=== PATIENT | female | born 1940 | race Caucasian/White ===

== ENCOUNTER 2017-09-07 14:22 | Emergency (ER) | payer MEDICARE, SELFPAY ==
[2017-09-07 14:30] VITALS: BMI 31.4
[2017-09-07 15:08] LABS: Absolute Lymphocyte Count 1.09 X10^3/ul (0.83-4.51); Absolute Neutrophil Count 4.1 X10^3/uL (2.0-7.7); Basophil# 0.02 X10^3/uL; Basophil% 0.3 % (0-1); Eosinophil# 0.03 X10^3/uL; Eosinophils% 0.5 % (0-5); Hematocrit 32.3 % (37-47); Lymphocyte # 1.09 X10^3/ul (4.0); Lymphocyte % 17.8 % (19-41); Mean Corp Hgb Conc 34.1 g/gl (32-36); Mean Corpuscular Hgb 30.7 pg (27.0-32.0); Mean Corpuscular Volume 90.2 fL (81-99); Mean Platelet Vol. 9.1 fl (6.2-12.0); Monocyte# 0.86 X10^3/uL; Monocyte% 14.1 % (0-10); Neutrophil # 4.11 X10^3/uL (2.7-7.7); Neutrophil % 67.1 % (47-70); POSITIVE COUNT NO; POSITIVE DIFFERENTIAL NO; POSITIVE MORPHOLOGY NO; Platelet Count 227 K/mm3 (150-450); Red Blood Count 3.58 M/mm3 (4.2-5.4); White Blood Count 6.1 K/mm3 (4.4-11.0)
[2017-09-07 15:25] LABS: Anion Gap 10 (5-15); BUN 33 mg/dL (7-18); BUN/Creat Ratio 20.1 RATIO (10-20); Calcium,Total 10.3 mg/dL (8.5-10.1); Chloride 98 mmol/L (98-107); Creatinine, Serum 1.64 mg/dL (0.55-1.02); EST Glomerular Filtration Rate 32 mL/min (>60); Est Glom Filt Rate - Afr Amer 39 mL/min (>60); Estimated Creatinine Clearance 24.52 ml/min; Glucose 117 mg/dL (74-106); Potassium 4.1 mmol/L (3.5-5.1); Sodium Level 131 mmol/L (136-145)
--- NOTE | 2017-09-07 15:26 | ED.VISSUMM ---
- ER Visit Summary Date of Service: 09/07/17 Chief Complaint: My defibrillator fired today and 2 days ago History of Present Illness: The patient is a 76 F who has history of dysrhythmia had and AC ID placed at the time of her aortic and mitral valve replacement. Her EP monotype machinist has since retired. She has not follow-up with anyone at [facility]. She states yesterday while getting out of the shower her defibrillator fired and prior to arrival while talking on the phone her defibrillator fired. Today she stated that she felt funny before the defibrillator fired. She has no other symptoms. She denied chest pain, orthopnea and PND. She denied shortness of breath, dyspnea on exertion or cough. She denied jaw pain, neck pain bilateral shoulder or upper extremity pain. She had no discomfort in her back. She denies any leg pain, swelling or discoloration. She denies hematemesis, melena hematochezia. Please read written note for complete detail Physical Examination: Patient's vitals were noted. Monitor reveals a sinus rhythm rate of 85 with a wide-complex adjustable right bundle branch block. HEENT exam is unremarkable. Heart is regular without murmur, gallop or rub. S1 and S2 are normal. Lungs are clear to auscultation with good movement of air bilaterally. The aortic valve is prominent. There is no split S2. There is no murmur, gallop or rub noted. Abdomen is soft nontender. Bowel sounds are present normal. Lower extremity exam is remarkable for 1+ pitting edema. DP PT pulses are palpable. There is no asymmetry, discoloration, leg vein distention, palpable cords or tenderness along the distribution of deep venous system. Neuro exam is nonfocal. Test Results: CBC is remarkable for mild anemia with an H&H 11.0 and 32.5. Basic metabolic panels marked for sodium 131 creatinine 1.64 with a GFR of 32. There are no recent labs for comparison. The AC ID was interrogated and there were several episodes of wide-complex tachycardia rate of 150+ noted. The dysrhythmia was not successfully treated with overdrive pacing. The discharge of defibrillator was appropriate. Emergency Department Course and Treatment: Will evaluate CBC BMP and have ACID interrogated. Treatment Plan: Follow-up with EP monotype machinist at [facility]. Disposition: Discharge to home with follow-up with EP monotype machinist Impression: Wide complex tachycardia appropriately treated with firing of ACID This note was generated with [employer] dictation software. It may contain incorrect words, spelling, and punctuation that were not noted in review of the chart prior to signing ED Disposition - Plan for ED Patient: Disposition: Home or Assisted Living Chief Complaint: Chest Other Instructions: Implantable Cardioverter Defibrillator (ICD), ED Tachycardia Pat PSVT Referrals: Peng Granados MD [Primary Care Provider] - Additional Instructions: You need to contact her monotype machinist at [facility] for follow-up within the next several days.
--- NOTE | 2017-09-07 15:30 | ED.DCSUM_ITS ---
- ER Visit Summary Date of Service: 09/07/17 Chief Complaint: My defibrillator fired today and 2 days ago History of Present Illness: The patient is a 76 F who has history of dysrhythmia had and AC ID placed at the time of her aortic and mitral valve replacement. 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 She has not follow-up with anyone at [facility]. She states yesterday while getting out of the shower her defibrillator fired and prior to arrival while talking on the phone her defibrillator fired. Today she stated that she felt funny before the defibrillator fired. She has no other symptoms. She denied chest pain, orthopnea and PND. She denied shortness of breath, dyspnea on exertion or cough. She denied jaw pain, neck pain bilateral shoulder or upper extremity pain. She had no discomfort in her back. She denies any leg pain, swelling or discoloration. She denies hematemesis, melena hematochezia. Please read written note for complete detail Physical Examination: Patient's vitals were noted. Monitor reveals a sinus rhythm rate of 85 with a wide-complex adjustable right bundle branch block. HEENT exam is unremarkable. Heart is regular without murmur, gallop or rub. S1 and S2 are normal. Lungs are clear to auscultation with good movement of air bilaterally. The aortic valve is prominent. There is no split S2. There is no murmur, gallop or rub noted. Abdomen is soft nontender. Bowel sounds are present normal. Lower extremity exam is remarkable for 1+ pitting edema. DP PT pulses are palpable. There is no asymmetry, discoloration, leg vein distention, palpable cords or tenderness along the distribution of deep venous system. Neuro exam is nonfocal. Test Results: CBC is remarkable for mild anemia with an H&H 11.0 and 32.5. Basic metabolic panels marked for sodium 131 creatinine 1.64 with a GFR of 32. There are no recent labs for comparison. The AC ID was interrogated and there were several episodes of wide-complex tachycardia rate of 150+ noted. The dysrhythmia was not successfully treated with overdrive pacing. The discharge of defibrillator was appropriate. Emergency Department Course and Treatment: Will evaluate CBC BMP and have ACID interrogated. Treatment Plan: Follow-up with EP ammunition assembly i laborer at [facility]. Disposition: Discharge to home with follow-up with EP ammunition assembly i laborer Impression: Wide complex tachycardia appropriately treated with firing of ACID This note was generated with [employer] dictation software. It may contain incorrect words, spelling, and punctuation that were not noted in review of the chart prior to signing ED Disposition - Plan for ED Patient: Disposition: Home or Assisted Living Chief Complaint: Chest Other Instructions: Implantable Cardioverter Defibrillator (ICD), ED Tachycardia Pat PSVT Referrals: Peng Granados MD [Primary Care Provider] - Additional Instructions: You need to contact her ammunition assembly i laborer at [facility] for follow-up within the next several days.
[2017-09-07 15:48] VITALS: BP 170/71; PULSE 69; RESP 9; O2SAT 98
--- NOTE | 2017-09-07 16:59 | PCM.PACRNU ---
Pacer Nurse Hospital Visit Notes: Dual Chamber ICD Evaluation: Interrogation completed at bedside in ED per MD order for ICD shocks. Interrogation shows 29 NSVT episodes, 7 VT episodes, 2 shocks and 11 SVT episodes since 09/01/17. All episodes occurring on 09/05, and . Stored e-grams for NSVT and VT episodes show 1:1 conduction with rates 164 to 172 bpm. E-gram for episode on 09/07/17 @ 12:38 pm shows atrial and ventricular rate @ 164 bpm with unsuccessful ATP x 3 then successful 17.5J shock converting to NSR @ 75 bpm with premature beats. E-gram on 09/06/17 @ shows Atrial and Vent. rate @ 162 bpm with unsuccessful ATPx3 then successful 17.5J shock converting to NSR. Some of the e-grams for SVT episode look like atrial tachycardia. Pt is on Amiodarone once daily. Presenting rhythm shows NSR @ 72 bpm. Estimated battery life 5.4 to 5.7 yrs. Lead impedances, sensing and pace/sense thresholds stable. No parameter changes made. Did not clear counters since patient is followed at [facility] @ [place]. Pt also has device followed remotely there. Dr. Benavides in ED notified of above. Johan Bonilla RN - Pacer Check Procedure Procedures: 72751 ICD Eval Dual
== END 2017-09-07 15:49 | disposition home or self-care (01) ==
LOC: ED 15:38
PROVIDERS: Emergency Provider Emergency Medicine; Family Provider Family Medicine; PCP Family Medicine
DX: R00.0 Tachycardia, unspecified (principal); I45.10 Unspecified right bundle-branch block; Z95.2 Presence of prosthetic heart valve; I10 Essential (primary) hypertension; E78.00 Pure hypercholesterolemia, unspecified; Z95.810 Presence of automatic (implantable) cardiac defibrillator
CPT/HCPCS: 80048; 85025; 99285

== ENCOUNTER → 2018-05-08 08:38 | Outpatient (CLI) | payer MEDICARE, SELFPAY ==
[2018-05-08 10:03] LABS: AST(SGOT) 27 U/L (15-37); Alanine Aminotransfer ALT/SGPT 45 U/L (13-56); Albumin, Serum 4.4 g/dL (3.2-5.0); Alkaline Phosphatase 82 U/L (45-117); Anion Gap 12 (5-15); BUN 37 mg/dL (7-18); BUN/Creat Ratio 20.3 RATIO (10-20); Calcium,Total 10.1 mg/dL (8.5-10.1); Chloride 101 mmol/L (98-107); Cholesterol 192 mg/dL (200); Creatinine, Serum 1.82 mg/dL (0.55-1.02); EST Glomerular Filtration Rate 29 mL/min (>60); Est Glom Filt Rate - Afr Amer 35 mL/min (>60); Globulin 4.3 g/dL (2.2-4.2); Glucose 92 mg/dL (74-106); High Density Lipoprotein 77 mg/dL; Potassium 4.4 mmol/L (3.5-5.1); Protein, Total 8.7 g/dL (6.4-8.2); Sodium Level 138 mmol/L (136-145); Triglycerides 101 mg/dL; Very Low Density Lipoprotein 20 mg/dL (5-40)
== END ==
PROVIDERS: Family Provider Family Medicine; PCP Family Medicine
DX: E78.5 Hyperlipidemia, unspecified (principal); I48.1 Persistent atrial fibrillation; I10 Essential (primary) hypertension; I35.1 Nonrheumatic aortic (valve) insufficiency; I34.0 Nonrheumatic mitral (valve) insufficiency; I47.2 Ventricular tachycardia; Z95.810 Presence of automatic (implantable) cardiac defibrillator
CPT/HCPCS: 36415; 80053; 80061

== ENCOUNTER → 2018-12-12 09:27 | Outpatient (CLI) | payer MEDICARE, SELFPAY ==
[2018-12-12 11:09] LABS: Thyroid Stim Hormone (TSH) 3.48 uIU/mL (0.358-3.74)
== END ==
PROVIDERS: Family Provider Family Medicine; PCP Family Medicine
DX: I48.1 Persistent atrial fibrillation (principal)
CPT/HCPCS: 36415; 80299; 84443

== ENCOUNTER → 2019-02-08 15:30 | Outpatient (CLI) | payer MEDICARE, SELFPAY ==
[2019-02-08 16:01] LABS: Prothrombin Time (Protime)PT. 54.9 SECONDS (11.7-14.9)
[2019-02-08 16:10] LABS: International Normalized Ratio 6.1
== END ==
PROVIDERS: Family Provider Family Medicine; PCP Family Medicine; Referring Provider Family Medicine; Visit Provider Family Medicine
DX: I48.20 Chronic atrial fibrillation, unspecified (principal)
CPT/HCPCS: 85610

== ENCOUNTER → 2019-02-09 10:07 | Outpatient (CLI) | payer MEDICARE, SELFPAY ==
[2019-02-09 10:29] LABS: Prothrombin Time (Protime)PT. 50.1 SECONDS (11.7-14.9)
[2019-02-09 10:39] LABS: International Normalized Ratio 5.4
== END ==
PROVIDERS: Family Provider Family Medicine; PCP Family Medicine; Referring Provider Family Medicine; Visit Provider Family Medicine
DX: I48.20 Chronic atrial fibrillation, unspecified (principal)
CPT/HCPCS: 85610

== ENCOUNTER → 2019-09-06 10:09 | Outpatient (CLI) | payer MEDICARE, SELFPAY ==
[2019-09-06 12:40] LABS: Urine Sodium 21 mmol/L (Not Establ.)
[2019-09-06 12:49] LABS: Albumin, Serum 3.9 g/dL (3.2-5.0); BUN 38 mg/dL (7-18); BUN/Creat Ratio 22.1 RATIO (10-20); Calcium,Total 9.6 mg/dL (8.5-10.1); Chloride 98 mmol/L (98-107); Creatinine, Serum 1.72 mg/dL (0.55-1.02); EST Glomerular Filtration Rate 31 mL/min (>60); Est Glom Filt Rate - Afr Amer 37 mL/min (>60); Glucose 102 mg/dL (74-106); Phosphorus 3.3 mg/dL (2.5-4.9); Potassium 4.4 mmol/L (3.5-5.1); Sodium Level 131 mmol/L (136-145)
== END ==
PROVIDERS: PCP Family Medicine; Visit Provider Internal Medicine Nephrology
DX: N18.4 Chronic kidney disease, stage 4 (severe) (principal)
CPT/HCPCS: 36415; 80069; 84300

== ENCOUNTER → 2019-09-25 09:29 | Outpatient (CLI) | payer MEDICARE, SELFPAY ==
[2019-09-25 10:39] LABS: Anion Gap 9 (5-15); BUN 24 mg/dL (7-18); Calcium,Total 9.7 mg/dL (8.5-10.1); Chloride 101 mmol/L (98-107); EST Glomerular Filtration Rate 36 mL/min (>60); Est Glom Filt Rate - Afr Amer 43 mL/min (>60); Glucose 109 mg/dL (74-106); Potassium 4.8 mmol/L (3.5-5.1); Sodium Level 134 mmol/L (136-145)
== END ==
PROVIDERS: PCP Family Medicine; Referring Provider Internal Medicine Nephrology; Visit Provider Internal Medicine Nephrology
DX: E87.1 Hypo-osmolality and hyponatremia (principal)
CPT/HCPCS: 36415; 80048

== ENCOUNTER → 2019-11-05 10:51 | Outpatient (CLI) | payer MEDICARE, SELFPAY ==
[2019-11-05 11:38] LABS: BUN 33 mg/dL (7-18); BUN/Creat Ratio 16.8 RATIO (10-20); Calcium,Total 9.4 mg/dL (8.5-10.1); Chloride 106 mmol/L (98-107); Creatinine, Serum 1.97 mg/dL (0.55-1.02); EST Glomerular Filtration Rate 26 mL/min (>60); Est Glom Filt Rate - Afr Amer 32 mL/min (>60); Glucose 113 mg/dL (74-106); Phosphorus 3.6 mg/dL (2.5-4.9); Sodium Level 135 mmol/L (136-145)
== END ==
PROVIDERS: PCP Family Medicine; Referring Provider Internal Medicine Nephrology; Visit Provider Internal Medicine Nephrology
DX: N18.4 Chronic kidney disease, stage 4 (severe) (principal)
CPT/HCPCS: 36415; 80069

== ENCOUNTER → 2019-11-15 11:18 | Outpatient (CLI) | payer MEDICARE, SELFPAY ==
[2019-11-15 12:55] LABS: Albumin, Serum 4.1 g/dL (3.2-5.0); BUN 30 mg/dL (7-18); BUN/Creat Ratio 17.2 RATIO (10-20); Calcium,Total 9.5 mg/dL (8.5-10.1); Chloride 103 mmol/L (98-107); Creatinine, Serum 1.74 mg/dL (0.55-1.02); EST Glomerular Filtration Rate 30 mL/min (>60); Est Glom Filt Rate - Afr Amer 36 mL/min (>60); Glucose 159 mg/dL (74-106); Phosphorus 2.6 mg/dL (2.5-4.9); Potassium 4.9 mmol/L (3.5-5.1); Sodium Level 132 mmol/L (136-145)
== END ==
PROVIDERS: PCP Family Medicine; Visit Provider Internal Medicine Nephrology
DX: N18.4 Chronic kidney disease, stage 4 (severe) (principal)
CPT/HCPCS: 36415; 80069

== ENCOUNTER 2019-11-19 04:40 | Inpatient (IN) | payer MEDICARE, SELFPAY ==
[2019-11-19] VITALS (12 sets, daily range): BP systolic 127–165; BP diastolic 65–80; PULSE 79–105; RESP 16–23; TEMP 36.8–37; O2SAT 92–94; BMI 29.5; BMI 28.8
--- NOTE | 2019-11-19 04:59 | EKG12_ITS ---
Test Reason : SOB Blood Pressure : / mmHG Vent. Rate : 081 BPM Atrial Rate : 081 BPM P-R Int : 136 ms QRS Dur : 166 ms QT Int : 460 ms P-R-T Axes : 000 139 -66 degrees QTc Int : 534 ms Atrial-sensed ventricular-paced rhythm Abnormal ECG Confirmed by GLENN ARREOLA, DAVE ([id number]), slot editor AMBER VILCHIS ([id number]) on 11/19/2019 1:27:31 PM Referred By: YESENIA Confirmed By:DAVE ELIZABETH MD
--- NOTE | 2019-11-19 05:02 | ED.DCSUM_ITS ---
- ER Visit Summary Date of Service: 11/19/19 Chief Complaint: Shortness of breath History of Present Illness: The patient is a [address] Pelletier, Dr. Granados, and Dr. Kay. She reports that she has shortness of breath that began 2 weeks ago and is gradually gotten worse. It is moderate currently and severe at worst. Is worsened by exertion. There is no change with laying flat. Is relieved by rest. She reports that she has a chronic cough that is unchanged. This is nonproductive. She denies any fever, chills, or chest pain. Patient denies any sick contacts. States that she has been wearing a mask. She only goes to the grocery store and [employer]. Patient reports that she saw Dr. Pelletier 4 days ago and was placed on Lasix 20 mg every other day. Her last dose was 2 days ago. She is only had 2 doses altogether. She reports that her daily weight is supposed to be 160 pounds. She has not weighed herself today. She does report that she feels to fatigue. Physical Examination: Vitals: Stable. Afebrile. General: Well-nourished and well-developed. Head: Normocephalic atraumatic. Neck: Supple, no lymphadenopathy. No JVD. Nontender. Cardiovascular: Regular rate and rhythm. 2 out of 6 systolic murmur. She does have a mechanical valve click. Respiratory: No respiratory distress. Crackles at the bases bilaterally. Abdominal: Soft, nontender, nondistended, normal bowel sounds. No guarding, rebound, or peritoneal signs. Back: Nontender. Extremities: Nontender, 2+ pitting edema lower extremities bilaterally. Skin: Normal color, no rash. Neurologic: Alert and oriented ?3. Cranial nerves II through XII are intact. Normal strength and sensation. Psych: Normal affect. Test Results: EKG is AV paced at 81. This is a change since 2013. At that time she was not paced. CBC shows an H&H of 8.8 and 27.0, lymphocytes of 16, monocytes of 17. Chem-7 shows a sodium 131, BUN 25, creatinine 1.68, glucose 124. INR is 3.0. Troponin is negative. Clinical Impression(s) from Imaging Studies Chest X-Ray 11/19/19 05:05 IMPRESSION: Pacemaker leads are in proper position. Lungs are expanded. There are mild fibrotic changes at the lung bases. There are NO infiltrates. There is NO pleural effusion or pneumothorax. Heart is borderline enlarged. There has been open heart surgery. Electronically Signed: Lars Talley MD at 5:19 EDT , Service support , Emergency Department Course and Treatment: Patient's weight is 171.6 pounds. This is 11 pounds over her goal weight. She was given 40 mg of Lasix IV. When I went back into check on the patient her pulse ox was 88% on room air. She reports that her last echo cardiogram has been a while ago. She is unsure how long. States that it has been more than a year. Treatment Plan: Patient will be discussed with Dr. Reeves. She will be admitted for further evaluation and treatment. Disposition: Admitted in improved condition. Impression: 1. CHF. 2. History of aortic and mitral valve replacements. 3. Coumadin coagulopathy. 4. Anemia. 5. Chronic renal insufficiency. 6. Hypoxia. This note was generated with [employer] software. It may contain incorrect words, spelling, and punctuation that were not noted in review of the chart p rior to signing ED Disposition - Plan for ED Patient: Referrals: Peng Granados MD [Primary Care Provider] -
--- NOTE | 2019-11-19 05:05 | RAD_ITS ---
STUDY: X-RAY CHEST REASON FOR EXAM: Female, 79 years old. INCREASED SOB TECHNIQUE: Frontal view COMPARISON: 01-28-14 FINDINGS: Pacemaker leads are in proper position. Lungs are expanded. There are mild fibrotic changes at the lung bases. There are NO infiltrates. There is NO pleural effusion or pneumothorax. Heart is borderline enlarged. There has been open heart surgery. Normal visualized pulmonary arteries. Normal visualized aortic arch and descending thoracic aorta. Normal visualized thoracic spine. Normal visualized ribs, clavicles, and shoulders. There is no demonstrated abnormality of the visualized soft tissue structures of the upper abdomen. RAD/Chest 1 View (Portable) IMPRESSION: Pacemaker leads are in proper position. Lungs are expanded. There are mild fibrotic changes at the lung bases. There are NO infiltrates. There is NO pleural effusion or pneumothorax. Heart is borderline enlarged. There has been open heart surgery. Electronically Signed: Lars Talley MD at 5:19 EDT , Service support ,
[2019-11-19 05:06] LABS: Absolute Lymphocyte Count 1.38 X10^3/uL (0.83-4.51); Absolute Neutrophil Count 5.5 X10^3/uL (2.0-7.7); Basophil# 0.04 X10^3/uL; Basophil% 0.5 % (0-1); Eosinophil# 0.04 X10^3/uL; Eosinophils% 0.5 % (0-5); Hemoglobin 8.8 g/dL (12.0-15.0); Lymphocyte # 1.38 X10^3/ul (4.0); Lymphocyte % 16.3 % (19-41); Mean Corp Hgb Conc 32.6 g/dL (32-36); Mean Corpuscular Hgb 29.4 pg (27.0-32.0); Mean Corpuscular Volume 90.3 fL (81-99); Mean Platelet Vol. 9.1 fl (6.2-12.0); Monocyte# 1.43 X10^3/uL; Monocyte% 16.9 % (0-10); NRBC Flagged by Analyzer 0 % (0-5); Neutrophil # 5.53 X10^3/uL (2.7-7.7); Neutrophil % 65.3 % (47-70); Platelet Count 295 K/mm3 (150-450); RBC Distribution Width CV 13.6 % (11.6-14.6); RBC Distribution Width SD 44.9 fl (35.1-43.9); Red Blood Count 2.99 M/mm3 (4.2-5.4); White Blood Count 8.5 K/mm3 (4.4-11.0)
[2019-11-19 05:13] LABS: Prothrombin Time (Protime)PT. 30.4 SECONDS (11.7-14.9)
[2019-11-19 05:21] LABS: Anion Gap 8 (5-15); BUN 25 mg/dL (7-18); BUN/Creat Ratio 14.9 RATIO (10-20); Calcium,Total 9.3 mg/dL (8.5-10.1); Chloride 99 mmol/L (98-107); Creatinine, Serum 1.68 mg/dL (0.55-1.02); EST Glomerular Filtration Rate 31 mL/min (>60); Est Glom Filt Rate - Afr Amer 38 mL/min (>60); Estimated Creatinine Clearance 23.83 ml/min; Glucose 124 mg/dL (74-106); Potassium 3.9 mmol/L (3.5-5.1); Sodium Level 131 mmol/L (136-145)
--- NOTE | 2019-11-19 05:55 | PCM.HP.STD ---
Problem List (1) Acute on chronic heart failure Status: Chronic (2) Heart murmur Status: Chronic (3) HTN (hypertension) Status: Chronic (4) Osteoarthritis Status: Chronic (5) Hyperlipemia Status: Chronic (6) h/o seizures. 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 Her shortness of breath is with mild exertion. At emergency department on room air her oxygen saturation was 88%. Patient has about a 10 pound weight gain. She has bilateral leg edema. She paroxysmal nocturnal dyspnea. She denies orthopnea. At emergency department her BNP and was severely elevated. She was placed on every other day Lasix [address] Pelletier, automotive service technician. Past Medical History Past Medical History (Chronic Problems): Chronic Problems Acute on chronic heart failure (Chronic) Heart murmur (Chronic) HTN (hypertension) (Chronic) Osteoarthritis (Chronic) Hyperlipemia (Chronic) h/o seizures. (Chronic) Allergies phenytoin sodium [From Dilantin] Allergy (Verified 11/19/19 04:48) Unknown phenytoin sodium extended [From Dilantin] Allergy (Verified 11/19/19 04:48) Unknown Home Medications: Ambulatory Orders Medication Instructions Recorded Amlodipine [Norvasc] 10 mg PO DAILY 01/28/14 Calcium Carbonate/Vitamin D3 1 tab PO DAILY 01/28/14 [Calcium 500 + D Tablet] Pravastatin [Pravachol] 20 mg PO DAILY 01/28/14 Amiodarone HCl 200 mg PO DAILY 11/19/19 Ergocalciferol (Vitamin D2) 1,250 mcg PO QWEEK 11/19/19 [Vitamin D2] Metoprolol Succinate [Toprol Xl] 150 mg PO DAILY 11/19/19 Warfarin [Coumadin (PBKC)] 2.5 mg PO DAILY 11/19/19 Surgical History: - - ankle surgery Psychiatric History: No pertinent psych hx COATER SMOKING PIPE History: No pertinent COATER SMOKING PIPE history Smoking Status: Never smoker - *Family History Paternal History Items: Heart Disease Maternal History Items: Heart Disease Review of Systems Constitutional: Reports: Weight Change - Weight increase. Denies: Chills, Fever HEENT: Denies: Head Aches, Sinus Congestion, Sinus Drainage Cardiovascular: Reports: Paroxysmal Noc. Dyspnea. Denies: Chest Pain, Palpitations Respiratory: Reports: Cough - Chronic, Shortness of breath upon exertion. Denies: Sputum production Gastrointestinal: Denies: Abdominal Pain, Nausea, Vomiting Genitourinary: Denies: Dysuria Musculoskeletal: Denies: Joint Pain, Joint Tenderness Skin: Denies: Rash, Wounds Neurological: Denies: Numbness, Tingling, Focal weakness Psychiatric: Denies: Anxiety, Depression, Homicidal Ideations, Suicidal Ideations Hematologic/ Lymphatic: Denies: Easy Bruising, Easy Bleeding VTE Information - Inpt Only VTE Present on Admission: No VTE Mechan Device Prophylaxis: SCD's VTE Pharm Prophylaxis ordered?: No - Physical Exam Vitals/I&O's: Vital Signs Temp Pulse Resp BP Pulse Ox 98.4 F 82 23 H 155/80 H 94 11/19/19 04:43 11/19/19 04:43 11/19/19 04:43 11/19/19 04:43 11/19/19 04:43 Oxygen Delivery Method Room Air Weight: 78 kg Body Mass Index (BMI) 29.5 General: Alert, Oriented x3, Cooperative HEENT: Atraumatic, PERRLA, EOMI, Normocephalic Neck: Supple, No JVD, Negative Carotid Bruits Lungs: Clear to auscultation, Normal air movement Cardiovascular: Regular rate, Normal S1, Normal S2, No murmurs, - Abdomen: Bowel Sounds Present, Soft, Non Tender Extremities: Capillary Refill Less than 3 Seconds, Edema - bilateral feet and akles Skin: No rashes, No breakdown Musculoskeletal: No Tenderness to Palpation of Joints or Extremities Neurological: Cranial nerves II-XII grossly intact Psych/Mental Status: Normal Affect, Appropriate Laboratory Results 11/19/19 04:56: WBC 8.5, RBC 2.99 L, Hgb 8.8 L, Hct 27.0 L, MCV 90.3, MCH 29.4, MCHC 32.6, RDW Std Deviation 44.9 H, RDW Coeff of Mark 13.6, Plt Count 295, MPV 9.1, Immature Gran % (Auto) 0.500, Neut % (Auto) 65.3, Lymph % (Auto) 16.3 L, [place] % (Auto) 16.9 H, Eos % (Auto) 0.5, Baso % (Auto) 0.5, Absolute Neuts (auto) 5.5, Absolute Lymphs (auto) 1.38, Nucleated RBC % 0 11/19/19 04:56: Sodium 131 L, Potassium 3.9, Chloride 99, Carbon Dioxide 24.0, Anion Gap 8, BUN 25 H, Creatinine 1.68 H, Estim Creat Clear Calc 23.83, Est GFR (MDRD) Af Amer 38 L, Est GFR (MDRD) Non-Af 31 L, BUN/Creatinine Ratio 14.9, Glucose 124 H, Calcium 9.3, Troponin I < 0.015 11/19/19 04:56: B-Natriuretic Peptide 1227.0 H 11/19/19 04:56: PT 30.4 H, INR 3.0 11/19/19 05:10: COVID-19 ([facility]) Pending Assessment/Plan The patient is a 79 year old F with a significant history of a 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 Acute on chronic heart failure with preserved ejection fraction Echocardiogram on 09/11/2014 showed moderate concentric left ventricular hypertrophy. Ejection fraction was 65 to 70%. Right ventricular systolic pressure was 21. Normal functioning bioprosthetic mitral valve regurgitation. Mild aortic valve insufficiency. Bioprosthetic aortic valve. Place on monitored bed on PCU Weight on admission to the floor; and then daily Strict I&O's CXR independently reviewed confirms no acute cardiopulmonary process. BNP was 1227 Received Lasix 40 mg IV push at emergency department. Lasix 40 mg IV push twice daily. Supplement potassium. Echo ordered to evaluate LVEF and wall motion. Monitor electrolytes and renal function Trend blood pressure Mynor wrap to bilateral lower extremities. Elevate bilateral lower extremities. Fluid restriction of 1500 mls daily 2 g cardiac diet Hypertension On Presentation blood pressure was not within goal. Metoprolol and amlodipine continued. Trend blood pressure and adjust blood pressure medications. Asthma A. fib Status post DC cardioversion and with pacemaker. Amiodarone and Metoprolol continued Warfarin held secondary anemia. Acute anemia On presentation her hemoglobin was 8.8 Hemoglobin about 2 years ago was 11. In 2016 she had a hemoglobin of 12. Stool occult blood ordered. Hold warfarin Anemia work-up including reticulocyte, iron, ferritin, iron binding globulin, vitamin B12, LDH, haptoglobin, and folic acid ordered. DVT Prophylaxis SCD. Inpatient E&M: 19387 Init Hosp L3
[2019-11-19] MEDS: Aspirin 81 MG TAB.CHEW 324 MG PO (05:56)
[2019-11-19] MEDS: Furosemide 40 MG/4 ML Vial IV ×2 (05:57→17:22)
[2019-11-19 06:11] LABS: Probe Check PASS; Specimen Processing Control PASS
[2019-11-19 08:10] LABS: Platelet Count 260 K/mm3 (150-450); RET-HE 29.4 pg (30-35); Reticulocyte Count 2.59 % (0.5-1.5)
--- NOTE | 2019-11-19 08:14 | ECHOD_ITS ---
Reason For Study: Dyspnea/SOB Procedure This was a 2D Doppler, Color Flow transthoracic echocardiogram. Exam performed portable in patient room. Left Ventricle Normal LV size. Moderate concentric left ventricular hypertrophy. Left ventricular systolic function is normal. The estimated ejection fraction is 65 %. No regional wall motion abnormalities noted. Right Ventricle Normal RV size. ICD or pacer leads identified within the right ventricle. Normal systolic function. Atria The left atrium is severely enlarged. Normal right atrium. ICD or pacer leads identified within the right atrium. Mitral Valve Bioprosthetic mitral valve. Prosthetic mitral valve strands. Calcified subvalvular strands/sutures. Tricuspid Valve Normal tricuspid valve. Mild (1+) tricuspid valve insufficiency. Pulmonary artery systolic pressure is 43 mmHg. Aortic Valve Peak aortic valve gradient 50 mmHg. Mean aortic valve gradient 26 mmHg. Mild aortic stenosis. Calculated aortic valve area (continuity equation) is 1.4 cm2. Mild (1+) aortic valve insufficiency. Bioprosthetic aortic valve. Pulmonic Valve Normal pulmonic valve. Great Vessels Normal aortic root. The pulmonary artery is normal size. Inferior vena cava collapse with sniff. Pericardium/Pleural No pericardial effusion. MMode/2D Measurements & Calculations LVIDd: 3.7 cm IVSd: 1.8 cm LVOT diam: 2.1 cm LVIDs: 1.7 cm LVPWd: 1.8 cm LVOT area: 3.4 cm2 FS: 53.9 % LA dimension: 4.9 cm LAV(MOD-sp4): 138.8 ml LA A4 area: 32.9 cm2 RA A4 area: 22.6 cm2 Time Measurements MV dec time: 0.26 sec Doppler Measurements & Calculations MV E max twin: 210.2 cm/sec MV V2 max: 232.9 cm/sec MV P1/2t max twin: 232.9 cm/sec MV A max twin: 114.2 cm/sec MV max P.7 mmHg MV P1/2t: 50.9 msec MV E/A: 1.8 MV V2 mean: 105.7 cm/sec MV dec slope: 1341 cm/sec2 MV mean P.8 mmHg MV V2 VTI: 46.5 cm MVA(P1/2t): 4.3 cm2 MVA(VTI): 2.1 cm2 Ao V2 max: 355.2 cm/sec AI max twin: 418.0 cm/sec LV V1 max: 144.7 cm/sec Ao max P.5 mmHg AI max P.9 mmHg LV V1 max P.4 mmHg Ao V2 mean: 238.1 cm/sec LV V1 mean P.4 mmHg Ao mean P.5 mmHg AI dec slope: 312.7 cm/sec2 LV V1 mean: 95.7 cm/sec Ao V2 VTI: 72.2 cm AI P1/2t: 391.5 msec LV V1 VTI: 28.9 cm JAVED(I,D): 1.4 cm2 JAVED(V,D): 1.4 cm2 SV(LVOT): 99.0 ml PA V2 max: 78.0 cm/sec TR max twin: 313.9 cm/sec TR max P.4 mmHg Interpretation Summary Normal LV size. Left ventricular systolic function is normal. The estimated ejection fraction is 65 %. The left atrium is severely enlarged. Moderate concentric left ventricular hypertrophy. Pulmonary artery systolic pressure is 43 mmHg. Mean aortic valve gradient 26 mmHg. Bioprosthetic aortic valve. Bioprosthetic mitral valve. Ordering Physician: Kostas Reeves Referring Physician: QUINCY EVANS Performed By: Juan Carlos Matos RCS
[2019-11-19 08:31] LABS: Ferritin 21 ng/mL (8-252); Iron 27 ug/dL (50-170); Iron Binding Capacity,Total 439 ug/dL (250-450); LDH 329 U/L (84-246); PERCENT IRON SATURATION 6.2 % (15.0-55.0)
[2019-11-19 08:35] LABS: Vitamin B12 665 pg/mL (211-911)
[2019-11-19] MEDS: Metoprolol(XL)Succ 50 MG Tablet 150 MG PO (10:34)
[2019-11-19] MEDS: amLODIPine 10 MG Tablet PO (10:35)
[2019-11-19] MEDS: Amiodarone 200 MG Tablet PO (10:35)
--- NOTE | 2019-11-19 11:48 | CASEMGMT ---
FAB [facility]ONA assessment: Face to Face with patient for initial transition planning/care coordination assessment. FAB GAONA introduced self and role at [facility], pt voices understanding and consents to assessment at this time. Pt is lying in bed in no distress at this time. Pt is A/Ox4 at this time and answers all questions appropriately at this time. Care providers, pharmacy, and demographics verified/updated at this time. Presentation: Pt c/o SOB, increasing over the past several days Admitting dx: Acute on Chronic diastolic HF PCP: Roberta Specialists: Raymond, cardiology in [place]; michelle Pelletier Preferred Pharmacy: [facility] Insurance: [employer] Prescription Benefit: [employer] Living Will/HPOA: Pt has LW/HPOA and is aware that they are not on file at [facility] at this time. Pt's , Fan Tierney, is HPOA. LNOK: Fan Tierney, ; Keaton Tierney, son Living Arrangements: Pt states lives with in 1 story home with ramp and states no concerns at home at this time. Pt states is independent with ADL's. Transportation: Pt states drives self and states no transportation concerns at this time. DME/HHC: Pt states has grab bars and shower chair and states no need for any further DME at this time. [facility] and states has never been to SNF in the past. Pt states no concerns with going home at time of discharge. Pt states is retired. Pt states does not smoke cigarettes or drink ETOH. Pt states no further concerns/needs at this time. CM to follow for any further discharge planning/needs. Advised pt to ask for CM if any further questions/concerns/needs arise, voices understanding. Pt Goal: Home Plan[place] [facility]
[2019-11-19] MEDS: Calcium Carb/Vitamin D 1 TABLET Tablet PO (11:54)
--- NOTE | 2019-11-19 18:43 | PCM.HOSP.N ---
Hospitalist Note Patient was seen and examined today, she remains on nasal cannula oxygen at this time, echocardiogram was completed today and it showed mild pulmonary hypertension with preserved EF. There is some aortic stenosis. Lasix for now and will be reevaluated tomorrow.
[2019-11-19] MEDS: 0.9% Saline Lock 10 ML Syringe IV (20:15)
[2019-11-19] MEDS: Pravastatin 20 MG Tablet PO (21:31)
[2019-11-20] VITALS (7 sets, daily range): BP systolic 124–133; BP diastolic 53–70; PULSE 80–87; RESP 16–18; TEMP 36.7–37.3; O2SAT 89–94
[2019-11-20] MEDS: Sodium Chloride 0.65% 1 SPRAY SPRAY.BTL 2 SPRAY NASAL (02:16)
[2019-11-20 06:45] LABS: Absolute Lymphocyte Count 1.05 X10^3/uL (0.83-4.51); Absolute Neutrophil Count 5.9 X10^3/uL (2.0-7.7); Basophil# 0.03 X10^3/uL; Basophil% 0.4 % (0-1); Eosinophil# 0.05 X10^3/uL; Eosinophils% 0.6 % (0-5); Hematocrit 25.2 % (37-47); Hemoglobin 8.2 g/dL (12.0-15.0); Lymphocyte # 1.05 X10^3/ul (4.0); Lymphocyte % 12.3 % (19-41); Mean Corp Hgb Conc 32.5 g/dL (32-36); Mean Corpuscular Hgb 29.9 pg (27.0-32.0); Mean Platelet Vol. 9.1 fl (6.2-12.0); Monocyte# 1.45 X10^3/uL; Monocyte% 16.9 % (0-10); NRBC Flagged by Analyzer 0 % (0-5); Neutrophil # 5.92 X10^3/uL (2.7-7.7); Platelet Count 288 K/mm3 (150-450); RBC Distribution Width CV 13.9 % (11.6-14.6); RBC Distribution Width SD 46.7 fl (35.1-43.9); Red Blood Count 2.74 M/mm3 (4.2-5.4); White Blood Count 8.6 K/mm3 (4.4-11.0)
[2019-11-20 07:00] LABS: International Normalized Ratio 3.2; Prothrombin Time (Protime)PT. 32.5 SECONDS (11.7-14.9)
[2019-11-20 07:27] LABS: Anion Gap 6 (5-15); BUN 25 mg/dL (7-18); BUN/Creat Ratio 15.5 RATIO (10-20); Chloride 100 mmol/L (98-107); Creatinine, Serum 1.61 mg/dL (0.55-1.02); EST Glomerular Filtration Rate 33 mL/min (>60); Est Glom Filt Rate - Afr Amer 40 mL/min (>60); Estimated Creatinine Clearance 24.87 ml/min; Glucose 88 mg/dL (74-106); Potassium 3.1 mmol/L (3.5-5.1); Sodium Level 134 mmol/L (136-145)
[2019-11-20] MEDS: Amiodarone 200 MG Tablet PO (09:47)
[2019-11-20] MEDS: Calcium Carb/Vitamin D 1 TABLET Tablet PO (09:47)
[2019-11-20] MEDS: Metoprolol(XL)Succ 50 MG Tablet 150 MG PO (09:47)
[2019-11-20] MEDS: amLODIPine 10 MG Tablet PO (09:47)
[2019-11-20] MEDS: 0.9% Saline Lock 10 ML Syringe IV ×2 (09:52→11:33)
[2019-11-20] MEDS: Furosemide 40 MG/4 ML Vial IV (11:33)
[2019-11-20 12:50] LABS: Haptoglobin 42 mg/dL (42-346)
--- NOTE | 2019-11-20 13:15 | PCM.DC ---
- Discharge Diagnoses Current Active Problems: Current Active and Chronic Problems Acute on chronic heart failure (Chronic) You will use the following diet at home:: No restrictions Your food should be the consistency of: Regular Your liquids should be the consistency of: Regular/Thin Discharge Activity: Return to Normal Activity Weight Bearing Status: Full weight bearing Allergies/Adverse Reactions: Allergies phenytoin sodium [From Dilantin] Allergy (Verified 11/19/19 04:48) Unknown phenytoin sodium extended [From Dilantin] Allergy (Verified 11/19/19 04:48) Unknown Medications to take at Discharge Amlodipine [Norvasc] 10 mg PO DAILY 01/28/14 Calcium Carbonate/Vitamin D3 [Calcium 500-Vit D3 400 Tablet] 1 tab PO DAILY 01/28/14 Pravastatin [Pravachol] 20 mg PO DAILY 01/28/14 Amiodarone HCl 200 mg PO DAILY 11/19/19 Ergocalciferol (Vitamin D2) [Vitamin D2] 1,250 mcg PO QWEEK 11/19/19 Metoprolol Succinate [Toprol Xl] 150 mg PO DAILY 11/19/19 Warfarin [Coumadin] 2.5 mg PO DAILY 11/19/19 Furosemide [Lasix] 60 mg PO DAILY #90 tab 11/20/19 Potassium Chloride [K-Dur] 20 meq PO DAILYCM #30 tab 11/20/19 The following prescriptions were given: Potassium Chloride [K-Dur] 20 meq PO DAILYCM #30 tab Transmission Status: Pending to [id number] Furosemide [Lasix] 60 mg PO DAILY #90 tab Transmission Status: Pending to [facility]/pharmacy #[id number] Primary Care Physician: Peng Granados MD [Primary Care Provider] - Please follow up with your Primary Care Physician in: on Tuesday-get repeat BMP done Test Results: Test results from this visit will be discussed in further detail at your follow-up appointment, if applicable. Please Follow Up With: Dr. Ferguson When: in 7-10 days
--- NOTE | 2019-11-20 13:21 | CASEMGMT ---
Pt does not qualify for home oxygen at this time. Pt independent in room, no therapy needed per therapy notes. Kalin SANON CM
--- NOTE | 2019-11-21 08:22 | PCM.DC.SUM ---
Discharge Date and Diagnosis Date of Admission: 11/19/19 Date of Discharge: 11/21/19 - Primary Discharge Diagnosis Acute Problems: #1 acute on chronic diastolic congestive heart failure #2 essential hypertension #3 iron deficiency anemia #4 coagulopathy secondary to Coumadin usage #5 paroxysmal atrial fib #6 chronic kidney disease stage III #7 mild pulmonary hypertension #8 mild aortic stenosis - Secondary Discharge Diagnosis Chronic Problems: Chronic Problems Acute on chronic heart failure (Chronic) Heart murmur (Chronic) HTN (hypertension) (Chronic) Osteoarthritis (Chronic) Hyperlipemia (Chronic) h/o seizures. (Chronic) Hospital Course and Treatment Operations: None Procedures: 2-D Echocardiogram Summary of Care Provided: The patient is a 79 year old F seen in the emergency room at [facility] with a chief complaint of shortness of breath x2 weeks. She denied any chest pain. Work-up in the emergency room included a chest x-ray which showed evidence of fibrotic changes at the lung bases, EKG showed a pacemaker with capture at 81, there is no evidence of atrial fib, labs were remarkable for a hemoglobin of 8.8, INR was elevated at 3, sodium was 131, creatinine was 1.68, beta natruretic peptide was elevated at 1227. Patient was admitted to PCU, placed on IV diuretics, serum iron was drawn and resulted at a low reading of 27, she was given IV Venofer, she required supplemental oxygen while at in the hospital and this was weaned at the time for discharge to home. On 11/20/2019, patient was seen and examined: On examination she appeared in good health and spirits, she does not appear to be in any distress. Vital signs as documented. Skin warm and dry and without overt rashes. Neck without JVD, thyroid appears normal, trachea is midline, neck is supple. Lungs clear, normal air movement was noted. Heart exam notable for regular rhythm, normal sounds and absence of murmurs, rubs or gallops. Abdomen unremarkable and without evidence of organomegaly, masses, or abdominal aortic enlargement, bowel sounds are present in all 4 quadrants, no abdominal tenderness was noted. Extremities nonedematous, no cyanosis was noted, no clubbing was noted. Neuro: Cranial nerves II through XII are grossly intact, no focal motor deficits were noted, sensation to light touch and pinprick is intact, motor exam 5/5 throughout. Psych: Patient is alert and oriented x3, she does not appear anxious or depressed, she does not appear agitated. Patient appeared stable for discharge on 11/20/2019, she was instructed to follow-up with her adventure education teacher and her primary care physician this week for repeat BMP, I called her primary care physician (Dr. Granados) and discussed the case with him, he is aware that her anemia has to be worked up-patient is currently on chronic Coumadin-and I also talked with her printed circuit board designer Dr. Pelletier concerning her hospital admission and the adjustment of her Lasix dosage. According to Dr. Pelletier, patient has had a history of congestive heart failure before. - Physical Exam Vitals/I&O's: Vital Signs Temp Pulse Resp BP Pulse Ox 98.1 F 83 18 124/53 H 92 11/20/19 09:55 11/20/19 09:55 11/20/19 09:55 11/20/19 09:55 11/20/19 12:55 Oxygen Flow Rate (L/min) 2 Oxygen Delivery Method Room Air Weight: 73 kg Body Mass Index (BMI) 28.8 Intake and Output for Last 24 Hours 11/19/19 11/20/19 11/21/19 23:59 23:59 23:59 Intake Total 1060 / 1060 780 / 780 Output Total 3100 / 3100 400 / 400 Balance -2040 / -2040 380 / 380 Laboratory Results 11/19/19 07:54: Haptoglobin 42 Discharge Activity: Return to Normal Activity Weight Bearing Status: Full weight bearing Home Medications: Medications to take at Discharge Amlodipine [Norvasc] 10 mg PO DAILY 01/28/14 Calcium Carbonate/Vitamin D3 [Calcium 500-Vit D3 400 Tablet] 1 tab PO DAILY 01/28/14 Pravastatin [Pravachol] 20 mg PO DAILY 01/28/14 Amiodarone HCl 200 mg PO DAILY 11/19/19 Ergocalciferol (Vitamin D2) [Vitamin D2] 1,250 mcg PO QWEEK 11/19/19 Metoprolol Succinate [Toprol Xl] 150 mg PO DAILY 11/19/19 Warfarin [Coumadin] 2.5 mg PO DAILY 11/19/19 Furosemide [Lasix] 60 mg PO DAILY #90 tab 11/20/19 Potassium Chloride [K-Dur] 20 meq PO DAILYCM #30 tab 11/20/19 Following Prescrptions Were Given to Patient: Potassium Chloride [K-Dur] 20 meq PO DAILYCM #30 tab Transmission Status: [id number] Furosemide [Lasix] 60 mg PO DAILY #90 tab Transmission Status: Re[facility] by [facility][id number] Primary Care Physician: Peng Granados MD [Primary Care Provider] - Please follow up with your Primary Care Physician in: on Tuesday-get repeat BMP done Please Follow Up With: Dr. Ferguson When: in 7-10 days Disposition: Home Minutes spent on discharge:: 32 Patient Condition:: Stable Medical Necessity - Tobacco Use Smoking Status: Never smoker Meaningful Use Info Meaningful Use Diagnoses (Choose all that apply): CHF - CHF CARI/ARB ordered at discharge?: No Reason CARI/ARB not ordered?: Allergy - Patient has a normal ejection fraction and has diastolic congestive heart failure Documented LVEF (%): 65
== END 2019-11-20 14:05 | disposition home or self-care (01) | DRG 291 ==
LOC: ED 05:34 → PCU 07:04
PROVIDERS: Admitting Provider Hospitalist; Emergency Provider Emergency Medicine; PCP Family Medicine; Visit Provider Internal Medicine
DX: I13.0 Hypertensive heart and chronic kidney disease with heart failure and stage 1 through stage 4 chronic kidney disease, or unspecified chronic kidney disease (principal); I50.33 Acute on chronic diastolic (congestive) heart failure; D50.9 Iron deficiency anemia, unspecified; N18.3 Chronic kidney disease, stage 3 (moderate); I48.0 Paroxysmal atrial fibrillation; I27.20 Pulmonary hypertension, unspecified; I34.0 Nonrheumatic mitral (valve) insufficiency; E78.5 Hyperlipidemia, unspecified; Z95.2 Presence of prosthetic heart valve; Z79.01 Long term (current) use of anticoagulants; Z79.899 Other long term (current) drug therapy; J45.909 Unspecified asthma, uncomplicated; D64.9 Anemia, unspecified; T45.515A Adverse effect of anticoagulants, initial encounter; R79.1 Abnormal coagulation profile; I35.0 Nonrheumatic aortic (valve) stenosis; M19.90 Unspecified osteoarthritis, unspecified site
CPT/HCPCS: 36415; 71045; 80048; 82607; 82728; 82746; 83010; 83540; 83550; 83615; 83880; 84443; 84484; 85025; 85045; 85610; 87635; 93005; 93306; 94799; 97166; 99285; J1756; Q9957; A4216; J1940; U0003

== ENCOUNTER → 2019-12-11 13:49 | Outpatient (CLI) | payer MEDICARE, SELFPAY ==
[2019-11-19 08:32] VITALS: BMI 28.8
[2019-12-11 15:02] LABS: Albumin, Serum 3.8 g/dL (3.2-5.0); BUN 26 mg/dL (7-18); BUN/Creat Ratio 12.4 RATIO (10-20); Calcium,Total 9.1 mg/dL (8.5-10.1); Chloride 105 mmol/L (98-107); Creatinine, Serum 2.09 mg/dL (0.55-1.02); EST Glomerular Filtration Rate 24 mL/min (>60); Est Glom Filt Rate - Afr Amer 29 mL/min (>60); Glucose 154 mg/dL (74-106); Phosphorus 3.3 mg/dL (2.5-4.9); Potassium 4.5 mmol/L (3.5-5.1); Sodium Level 135 mmol/L (136-145)
== END ==
PROVIDERS: PCP Family Medicine; Referring Provider Internal Medicine Nephrology; Visit Provider Internal Medicine Nephrology
DX: N18.4 Chronic kidney disease, stage 4 (severe) (principal)
CPT/HCPCS: 36415; 80069

== ENCOUNTER → 2019-12-20 14:45 | Outpatient (CLI) | payer MEDICARE, SELFPAY ==
[2019-11-19 08:32] VITALS: BMI 28.8
== END ==
PROVIDERS: PCP Family Medicine; Visit Provider Internal Medicine Nephrology
DX: N18.4 Chronic kidney disease, stage 4 (severe) (principal)

== ENCOUNTER → 2019-12-27 09:45 | Outpatient (CLI) | payer MEDICARE, SELFPAY ==
[2019-11-19 08:32] VITALS: BMI 28.8
[2019-12-27 11:15] LABS: Anion Gap 6 (5-15); BUN 34 mg/dL (7-18); BUN/Creat Ratio 16.7 RATIO (10-20); Calcium,Total 9.6 mg/dL (8.5-10.1); Chloride 101 mmol/L (98-107); Creatinine, Serum 2.04 mg/dL (0.55-1.02); EST Glomerular Filtration Rate 25 mL/min (>60); Est Glom Filt Rate - Afr Amer 30 mL/min (>60); Glucose 101 mg/dL (74-106); Potassium 3.8 mmol/L (3.5-5.1); Sodium Level 135 mmol/L (136-145)
== END ==
PROVIDERS: PCP Family Medicine
DX: I50.9 Heart failure, unspecified (principal)
CPT/HCPCS: 36415; 80048

== ENCOUNTER → 2020-02-05 13:28 | Outpatient (CLI) | payer MEDICARE, SELFPAY ==
[2019-11-19 08:32] VITALS: BMI 28.8
[2020-02-05 15:28] LABS: BUN 36 mg/dL (7-18); BUN/Creat Ratio 16.3 RATIO (10-20); Calcium,Total 9.6 mg/dL (8.5-10.1); Chloride 100 mmol/L (98-107); Creatinine, Serum 2.21 mg/dL (0.55-1.02); EST Glomerular Filtration Rate 23 mL/min (>60); Est Glom Filt Rate - Afr Amer 28 mL/min (>60); Glucose 116 mg/dL (74-106); Potassium 3.8 mmol/L (3.5-5.1); Sodium Level 133 mmol/L (136-145)
== END ==
PROVIDERS: PCP Family Medicine; Referring Provider Internal Medicine Nephrology; Visit Provider Internal Medicine Nephrology
DX: N18.4 Chronic kidney disease, stage 4 (severe) (principal)
CPT/HCPCS: 36415; 80069

== ENCOUNTER → 2020-04-23 14:31 | Outpatient (CLI) | payer MEDICARE, SELFPAY ==
[2019-11-19 08:32] VITALS: BMI 28.8
[2020-04-23 15:22] LABS: Albumin, Serum 3.7 g/dL (3.2-5.0); BUN 22 mg/dL (7-18); BUN/Creat Ratio 12.8 RATIO (10-20); Calcium,Total 9.7 mg/dL (8.5-10.1); Chloride 104 mmol/L (98-107); Creatinine, Serum 1.72 mg/dL (0.55-1.02); EST Glomerular Filtration Rate 30 mL/min (>60); Est Glom Filt Rate - Afr Amer 37 mL/min (>60); Glucose 95 mg/dL (74-106); Phosphorus 3.7 mg/dL (2.5-4.9); Potassium 4.4 mmol/L (3.5-5.1); Sodium Level 136 mmol/L (136-145)
== END ==
PROVIDERS: PCP Family Medicine; Referring Provider Internal Medicine Nephrology; Visit Provider Internal Medicine Nephrology
DX: N18.4 Chronic kidney disease, stage 4 (severe) (principal)
CPT/HCPCS: 36415; 80069

== ENCOUNTER 2020-06-18 16:05 | Outpatient (RCR) | payer MEDICARE, SELFPAY ==
[2019-11-19 08:32] VITALS: BMI 28.8
== END 2020-06-18 23:59 ==
LOC: IMMUN 16:05
PROVIDERS: PCP Family Medicine; Referring Provider Family Medicine; Visit Provider Family Medicine
DX: Z23 Encounter for immunization (principal)
CPT/HCPCS: 0011A; 0012A

== ENCOUNTER → 2020-08-12 14:28 | Outpatient (CLI) | payer MEDICARE, SELFPAY ==
[2019-11-19 08:32] VITALS: BMI 28.8
[2020-08-12 16:25] LABS: Anion Gap 6 (5-15); BUN 32 mg/dL (7-18); BUN/Creat Ratio 18.4 RATIO (10-20); Calcium,Total 9.8 mg/dL (8.5-10.1); Chloride 100 mmol/L (98-107); Creatinine, Serum 1.74 mg/dL (0.55-1.02); EST Glomerular Filtration Rate 30 mL/min (>60); Est Glom Filt Rate - Afr Amer 36 mL/min (>60); Glucose 101 mg/dL (74-106); Potassium 4.9 mmol/L (3.5-5.1); Sodium Level 134 mmol/L (136-145)
== END ==
PROVIDERS: PCP Family Medicine; Referring Provider Internal Medicine Nephrology; Visit Provider Internal Medicine Nephrology
DX: E87.6 Hypokalemia (principal)
CPT/HCPCS: 36415; 80048

== ENCOUNTER → 2020-09-16 14:28 | Outpatient (CLI) | payer MEDICARE, SELFPAY ==
[2019-11-19 08:32] VITALS: BMI 28.8
[2020-09-16 15:49] LABS: Hematocrit 37.1 % (37-47); Hemoglobin 12.2 g/dL (12.0-15.0); Mean Corp Hgb Conc 32.9 g/dL (32-36); Mean Corpuscular Hgb 30.8 pg (27.0-32.0); Mean Corpuscular Volume 93.7 fL (81-99); Mean Platelet Vol. 10.2 fl (6.2-12.0); Platelet Count 235 K/mm3 (150-450); RBC Distribution Width CV 13.7 % (11.6-14.6); Red Blood Count 3.96 M/mm3 (4.2-5.4); White Blood Count 7.7 K/mm3 (4.4-11.0)
[2020-09-16 16:58] LABS: Albumin, Serum 3.8 g/dL (3.2-5.0); BUN 31 mg/dL (7-18); BUN/Creat Ratio 16.3 RATIO (10-20); Calcium,Total 10.1 mg/dL (8.5-10.1); Chloride 102 mmol/L (98-107); EST Glomerular Filtration Rate 27 mL/min (>60); Est Glom Filt Rate - Afr Amer 33 mL/min (>60); Glucose 78 mg/dL (74-106); Phosphorus 3.4 mg/dL (2.5-4.9); Potassium 4.2 mmol/L (3.5-5.1); Sodium Level 136 mmol/L (136-145)
[2020-09-17 08:10] LABS: PTHIN 144.9 pg/mL (18.4-80.1)
== END ==
PROVIDERS: PCP Family Medicine; Referring Provider Internal Medicine Nephrology; Visit Provider Internal Medicine Nephrology
DX: E87.6 Hypokalemia (principal); N18.4 Chronic kidney disease, stage 4 (severe); N25.81 Secondary hyperparathyroidism of renal origin
CPT/HCPCS: 36415; 80069; 83970; 85027

== ENCOUNTER → 2020-10-17 09:14 | Outpatient (CLI) | payer MEDICARE, SELFPAY ==
[2019-11-19 08:32] VITALS: BMI 28.8
[2020-10-17 10:11] LABS: Hematocrit 37.7 % (37-47); Hemoglobin 12.1 g/dL (12.0-15.0); Mean Corp Hgb Conc 32.1 g/dL (32-36); Mean Corpuscular Hgb 31.2 pg (27.0-32.0); Mean Corpuscular Volume 97.2 fL (81-99); Mean Platelet Vol. 9.7 fl (6.2-12.0); Platelet Count 258 K/mm3 (150-450); RBC Distribution Width CV 14.2 % (11.6-14.6); RBC Distribution Width SD 50.1 fl (35.1-43.9); Red Blood Count 3.88 M/mm3 (4.2-5.4); White Blood Count 6.6 K/mm3 (4.4-11.0)
[2020-10-17 10:36] LABS: PTHIN 201.6 pg/mL (18.4-80.1)
[2020-10-17 10:48] LABS: BUN 23 mg/dL (7-18); BUN/Creat Ratio 14.5 RATIO (10-20); Calcium,Total 9.8 mg/dL (8.5-10.1); Chloride 103 mmol/L (98-107); Creatinine, Serum 1.59 mg/dL (0.55-1.02); EST Glomerular Filtration Rate 33 mL/min (>60); Est Glom Filt Rate - Afr Amer 40 mL/min (>60); Glucose 93 mg/dL (74-106); Phosphorus 3.1 mg/dL (2.5-4.9); Potassium 4.5 mmol/L (3.5-5.1); Sodium Level 137 mmol/L (136-145)
== END ==
PROVIDERS: PCP Family Medicine; Referring Provider Internal Medicine Nephrology; Visit Provider Internal Medicine Nephrology
DX: N18.4 Chronic kidney disease, stage 4 (severe) (principal); N25.81 Secondary hyperparathyroidism of renal origin
CPT/HCPCS: 36415; 80069; 83970; 85027

== ENCOUNTER → 2021-01-06 09:17 | Outpatient (CLI) | payer MEDICARE, SELFPAY | PROVIDERS: PCP Family Medicine | DX: R93.1 Abnormal findings on diagnostic imaging of heart and coronary circulation (principal) | CPT/HCPCS: 36415; 87040 ==

== ENCOUNTER → 2021-04-22 09:08 | Outpatient (CLI) | payer MEDICARE, SELFPAY ==
[2019-11-19 08:32] VITALS: BMI 28.8
[2021-04-22 09:46] LABS: Prothrombin Time (Protime)PT. 22.3 SECONDS (11.7-14.9)
[2021-04-22 10:01] LABS: Hematocrit 35.8 % (37-47); Hemoglobin 11.7 g/dL (12.0-15.0); Mean Corp Hgb Conc 32.7 g/dL (32-36); Mean Corpuscular Hgb 31.2 pg (27.0-32.0); Mean Corpuscular Volume 95.5 fL (81-99); Mean Platelet Vol. 9.8 fl (6.2-12.0); Platelet Count 264 K/mm3 (150-450); RBC Distribution Width CV 13.4 % (11.6-14.6); RBC Distribution Width SD 47.3 fl (35.1-43.9); Red Blood Count 3.75 M/mm3 (4.2-5.4); White Blood Count 6.8 K/mm3 (4.4-11.0)
[2021-04-22 10:19] LABS: Protein, Urine (Random) 243.3 mg/dL (<11.9); Protein:Creat Ratio 2883 mg/g CRE (0-200)
[2021-04-22 10:31] LABS: PTHIN 148.3 pg/mL (18.4-80.1)
[2021-04-22 10:51] LABS: Albumin, Serum 4.2 g/dL (3.2-5.0); BUN 22 mg/dL (7-18); Calcium,Total 10.3 mg/dL (8.5-10.1); Chloride 107 mmol/L (98-107); Creatinine, Serum 1.47 mg/dL (0.55-1.02); EST Glomerular Filtration Rate 36 mL/min (>60); Est Glom Filt Rate - Afr Amer 44 mL/min (>60); Glucose 96 mg/dL (74-106); Phosphorus 3.1 mg/dL (2.5-4.9); Potassium 4.3 mmol/L (3.5-5.1); Sodium Level 139 mmol/L (136-145)
== END ==
PROVIDERS: PCP Family Medicine; Referring Provider Internal Medicine Nephrology; Visit Provider Internal Medicine Nephrology
DX: N18.4 Chronic kidney disease, stage 4 (severe) (principal); N25.81 Secondary hyperparathyroidism of renal origin; Z95.2 Presence of prosthetic heart valve; I48.20 Chronic atrial fibrillation, unspecified
CPT/HCPCS: 36415; 80069; 82570; 83970; 84156; 85027; 85610

== ENCOUNTER 2021-05-26 10:29 | Outpatient (CLI) | payer MEDICARE, SELFPAY ==
[2021-05-26 11:47] LABS: Albumin, Serum 3.6 g/dL (3.2-5.0); BUN 24 mg/dL (7-18); BUN/Creat Ratio 16.1 RATIO (10-20); Calcium,Total 10.4 mg/dL (8.5-10.1); Chloride 103 mmol/L (98-107); Creatinine, Serum 1.49 mg/dL (0.55-1.02); EST Glomerular Filtration Rate 36 mL/min (>60); Est Glom Filt Rate - Afr Amer 43 mL/min (>60); Glucose 157 mg/dL (74-106); Phosphorus 2.3 mg/dL (2.5-4.9); Potassium 4.5 mmol/L (3.5-5.1); Sodium Level 134 mmol/L (136-145)
== END 2021-05-26 23:59 | disposition short-term general hospital (02) ==
PROVIDERS: PCP Family Medicine; Referring Provider Internal Medicine Nephrology; Visit Provider Internal Medicine Nephrology
DX: N18.32 Chronic kidney disease, stage 3b (principal); R80.9 Proteinuria, unspecified
CPT/HCPCS: 36415; 80069

== ENCOUNTER 2021-06-05 08:06 | Emergency (ER) | payer MEDICARE, SELFPAY ==
[2021-06-05 08:07] VITALS: BP 176/59; PULSE 96; RESP 17; TEMP 36.1; O2SAT 100; BMI 28.3
--- NOTE | 2021-06-05 08:28 | EDS_ITS ---
HPI History of Present Illness Chief Complaint: Nosebleed Narrative Narrative: Patient presents with nosebleed from her bilateral nares. It started this morning at approximately 715, 1 hour ago. She states she was already awakened and showered, and she had a sudden hylton of blood. She does take Coumadin for atrial fibrillation. 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 She denies any other bleeding diathesis. No chest pain or shortness of breath. No lightheadedness. She has not had her warfarin level checked/INR in approximately 3 weeks and is due next Tuesday. She states that they have been adjusting her medication and even of the dosing. [facility] Medical History (Updated 06/05/21 @ 11:06 by Tarun Lorenzo MD) Hypertension ICD (implantable cardioverter-defibrillator) in place Irregular heart beat Non-smoker Seizures Home Medications amlodipine 10 mg PO DAILY 01/28/14 [History Last Taken 01/27/14] calcium carbonate-vitamin D3 [Calcium 500 + D] 1 tab PO DAILY 01/28/14 [History Last Taken 01/27/14] pravastatin 20 mg PO DAILY 01/28/14 [History Last Taken 01/27/14] amiodarone 200 mg PO DAILY 11/19/19 [History Last Taken Unknown] ergocalciferol (vitamin D2) 1,250 mcg PO QWEEK 11/19/19 [History Last Taken Unknown] metoprolol succinate 150 mg PO DAILY 11/19/19 [History Last Taken Unknown] warfarin 2.5 mg PO DAILY 11/19/19 [History Last Taken Unknown] furosemide 60 mg PO DAILY #90 tab 11/20/19 [Rx Last Taken Unknown] potassium chloride 20 meq PO DAILYCM #30 tab 11/20/19 [Rx Last Taken Unknown] Allergy/AdvReac Type Severity Reaction Status Date / Time phenytoin sodium Allergy Unknown Verified 06/05/21 08:07 [From Dilantin] phenytoin sodium extended Allergy Unknown Verified 06/05/21 08:07 [From Dilantin] Surgical History (Updated 06/05/21 @ 08:43 by Aliya Elena) Mitral valve replaced Social History Smoking Status: Never smoker ROS ROS ED ROS Narrative Constitutional: No fever, no chills. HEENT: No sore throat. No neck pain. No loss of vision. No rhinorrhea. Positive epistaxis out of both nares. Cardiovascular: No chest pain. No palpitations. No pedal edema. Respiratory: No cough, no shortness of breath. Abdominal: No abdominal pain. No nausea. No vomiting. Genitourinary: No dysuria. No hematuria. Musculoskeletal: No myalgias. No arthralgias. Neurologic: No headaches. No dizziness. No lightheadedness. Skin: No rash. No change in color. Psychiatric: No depression. No anxiety. Hematologic: Denies other bleeding diathesis. EXAM Physical Exam Narrative Exam Narrative: Afebrile. Vital signs noted. HEENT: Normocephalic. Atraumatic. PERRL, EOMI. Neck soft and supple. No point tenderness or step off. Dried blood in posterior pharynx, clot in left nares, no active bleeding. Cardiovascular: Regular rate and rhythm. No murmurs, rubs, or gallops appreciated. Respiratory: No tachypnea. Lungs clear to auscultation bilaterally. Gastrointestinal: Abdomen soft, nontender, with normoactive bowel sounds. No rebound or guarding. Neurological: Awake. Alert. Nonfocal, nonlateralizing. Skin: No rash. Normal color. No pallor. Musculoskeletal: No pedal edema. Full range of motion extremities. Const Vital Signs: 06/05/21 08:07 06/05/21 09:54 Temperature 96.9 F L Temperature Source Temporal Pulse Rate 96 83 Respiratory Rate 17 19 H Blood Pressure 176/59 H 134/57 H Blood Pressure Mean 98 82 Pulse Ox 100 93 Oxygen Delivery Method Room Air Nasal Cannula Oxygen Flow Rate (L/min) 3 MDM MDM MDM Narrative Medical decision making narrative: I will check her INR level and her CBC here. Nasal passages will be cleared by patient blowing nose. CBC shows stable hemoglobin at 10.9, white count slightly elevated 11.7, INR therapeutic at 2.7. After removal of her nose clamp, there is no active bleeding. Her nasal passages were cleared by her blowing. There was removal of large clots. Cottonball soaked in Afrin and lidocaine 4% were inserted and left in place. They were removed and there is no active bleeding. I discussed the possibility of nasal packing with the patient and she declined. She would like to be discharged. She was told the risk of rebleeding and acknowledges an understanding. She will follow up with otolaryngology. She will return with new or worsening symptoms. Disposition is discharged home in stable condition. Lab Data Attestation: I reviewed the patient's lab results. Labs: Laboratory Results - last 24 hr 06/05/21 06/05/21 08:40 08:40 WBC 11.7 H RBC 3.51 L Hgb 10.9 L Hct 32.1 L MCV 91.5 MCH 31.1 MCHC 34.0 RDW Std Deviation 42.9 RDW Coeff of Mark 12.9 Plt Count 315 MPV 9.1 Immature Gran % (Auto) 0.800 Neut % (Auto) 80.8 H Lymph % (Auto) 8.7 L Jones % (Auto) 9.2 Eos % (Auto) 0.2 Baso % (Auto) 0.3 Absolute Neuts (auto) 9.4 H Absolute Lymphs (auto) 1.01 Nucleated RBC % 0 PT 27.8 H INR 2.7 Discharge Plan Triage Chief Complaint: Nosebleed ED Provider: Tarun Lorenzo Dx/Rx/DC Orders Clinical Impression: Epistaxis Instructions: ED Epistaxis (Adult) Prescriptions: No Action calcium carbonate-vitamin D3 [Calcium 500 + D] 1 EACH tablet 1 tab PO DAILY RF: 0 pravastatin 40 MG tablet 20 mg PO DAILY RF: 0 amlodipine 10 MG tablet 10 mg PO DAILY RF: 0 amiodarone 200 MG tablet 200 mg PO DAILY RF: 0 metoprolol succinate 100 MG tablet extended release 24 hr 150 mg PO DAILY RF: 0 warfarin 2.5 MG tablet 2.5 mg PO DAILY RF: 0 ergocalciferol (vitamin D2) 1,250 MCG capsule 1,250 mcg PO QWEEK RF: 0 potassium chloride 20 MEQ tablet 20 meq PO DAILYCM Qty: 30 RF: 0 furosemide 20 MG tablet 60 mg PO DAILY Qty: 90 RF: 0 Primary Care Provider: Peng Granados Referrals: Chuck Davis MD [STAFF PHYSICIAN] - Peng Granados MD [Primary Care Provider] - Disposition Disposition: Home, Self Care
[2021-06-05 08:45] LABS: Absolute Lymphocyte Count 1.01 X10^3/uL (0.83-4.51); Absolute Neutrophil Count 9.4 X10^3/uL (2.0-7.7); Basophil# 0.03 X10^3/uL; Basophil% 0.3 % (0-1); Eosinophil# 0.02 X10^3/uL; Eosinophils% 0.2 % (0-5); Hematocrit 32.1 % (37-47); Hemoglobin 10.9 g/dL (12.0-15.0); Lymphocyte # 1.01 X10^3/ul (0.83-4.51); Lymphocyte % 8.7 % (19-41); Mean Corpuscular Hgb 31.1 pg (27.0-32.0); Mean Corpuscular Volume 91.5 fL (81-99); Mean Platelet Vol. 9.1 fl (6.2-12.0); Monocyte# 1.07 X10^3/uL; Monocyte% 9.2 % (0-10); NRBC Flagged by Analyzer 0 % (0-5); Neutrophil # 9.43 X10^3/uL (2.7-7.7); Neutrophil % 80.8 % (47-70); Platelet Count 315 K/mm3 (150-450); RBC Distribution Width CV 12.9 % (11.6-14.6); RBC Distribution Width SD 42.9 fl (35.1-43.9); Red Blood Count 3.51 M/mm3 (4.2-5.4); White Blood Count 11.7 K/mm3 (4.4-11.0)
[2021-06-05 08:59] LABS: International Normalized Ratio 2.7; Prothrombin Time (Protime)PT. 27.8 SECONDS (11.7-14.9)
[2021-06-05 09:54] VITALS: BP 134/57; PULSE 83; RESP 19; O2SAT 93
[2021-06-05] MEDS: Oxymetazoline 0.05% 1 SPRAY SPRAY.BTL 2 SPRAY NASAL (10:30)
[2021-06-05] MEDS: Lidocaine 4% 50 ML Bottle TOPICAL (10:30)
[2021-06-05 11:20] VITALS: BP 138/74; PULSE 64; RESP 15; O2SAT 97
== END 2021-06-05 11:20 | disposition home or self-care (01) ==
PROVIDERS: Emergency Provider Emergency Medicine; PCP Family Medicine; Visit Provider Emergency Medicine
DX: R04.0 Epistaxis (principal); I48.91 Unspecified atrial fibrillation; I10 Essential (primary) hypertension; Z79.01 Long term (current) use of anticoagulants; Z95.2 Presence of prosthetic heart valve; Z95.810 Presence of automatic (implantable) cardiac defibrillator
CPT/HCPCS: 36415; 85025; 85610; 99282

== ENCOUNTER 2021-07-29 10:19 | Outpatient (CLI) | payer MEDICARE, SELFPAY ==
[2021-07-29 11:03] LABS: Protein, Urine (Random) 22.9 mg/dL (<11.9); Protein:Creat Ratio 407 mg/g CRE (0-200)
[2021-07-29 11:34] LABS: Albumin, Serum 3.1 g/dL (3.2-5.0); BUN 35 mg/dL (7-18); BUN/Creat Ratio 15.8 RATIO (10-20); Calcium,Total 10.5 mg/dL (8.5-10.1); Chloride 95 mmol/L (98-107); Creatinine, Serum 2.21 mg/dL (0.55-1.02); EST Glomerular Filtration Rate 23 mL/min (>60); Est Glom Filt Rate - Afr Amer 28 mL/min (>60); Glucose 177 mg/dL (74-106); Phosphorus 2.8 mg/dL (2.5-4.9); Potassium 4.4 mmol/L (3.5-5.1); Sodium Level 128 mmol/L (136-145)
== END 2021-07-29 23:59 | disposition home or self-care (01) ==
LOC: LAB 10:24
PROVIDERS: PCP Family Medicine; Referring Provider Internal Medicine Nephrology; Visit Provider Internal Medicine Nephrology
DX: N18.32 Chronic kidney disease, stage 3b (principal); R80.9 Proteinuria, unspecified
CPT/HCPCS: 36415; 80069; 82570; 84156

== ENCOUNTER → 2021-09-04 | Outpatient (CLI) | payer MEDICARE, SELFPAY ==
[2021-09-04 15:49] LABS: International Normalized Ratio 3.9; Prothrombin Time (Protime)PT. 38.1 SECONDS (11.7-14.9)
== END | disposition home or self-care (01) ==
LOC: LABSPEC 15:15
PROVIDERS: PCP Family Medicine; Visit Provider Family Medicine
DX: I48.20 Chronic atrial fibrillation, unspecified (principal); Z95.2 Presence of prosthetic heart valve
CPT/HCPCS: 85610

== ENCOUNTER → 2021-09-07 | Outpatient (CLI) | payer MEDICARE, SELFPAY ==
[2021-09-07 09:48] LABS: International Normalized Ratio 1.8; Prothrombin Time (Protime)PT. 20.9 SECONDS (11.7-14.9)
== END | disposition home or self-care (01) ==
LOC: LABSPEC 09:37
PROVIDERS: PCP Family Medicine; Visit Provider Family Medicine
DX: I48.91 Unspecified atrial fibrillation (principal)
CPT/HCPCS: 85610

== ENCOUNTER → 2021-12-15 | Outpatient (CLI) | payer MEDICARE, SELFPAY ==
[2021-12-15 12:39] LABS: Hemoglobin 10.2 g/dL (12.0-15.0); Mean Corp Hgb Conc 31.9 g/dL (32-36); Mean Corpuscular Hgb 28.1 pg (27.0-32.0); Mean Corpuscular Volume 88.2 fL (81-99); Mean Platelet Vol. 9.8 fl (6.2-12.0); Platelet Count 255 K/mm3 (150-450); RBC Distribution Width CV 16.8 % (11.6-14.6); RBC Distribution Width SD 55.6 fl (35.1-43.9); Red Blood Count 3.63 M/mm3 (4.2-5.4); White Blood Count 10.9 K/mm3 (4.4-11.0)
[2021-12-15 12:51] LABS: Vitamin D,25 Hydroxy 69.2 ng/mL
[2021-12-15 13:03] LABS: PTHIN 75.1 pg/mL (18.4-80.1)
[2021-12-15 13:32] LABS: Albumin, Serum 3.5 g/dL (3.2-5.0); BUN 26 mg/dL (7-18); BUN/Creat Ratio 17.7 RATIO (10-20); Calcium,Total 10.4 mg/dL (8.5-10.1); Chloride 103 mmol/L (98-107); Creatinine, Serum 1.47 mg/dL (0.55-1.02); EST Glomerular Filtration Rate 36 mL/min (>60); Est Glom Filt Rate - Afr Amer 44 mL/min (>60); Ferritin 100 ng/mL (8-252); Glucose 126 mg/dL (74-106); Iron 23 ug/dL (50-170); Iron Binding Capacity,Total 354 ug/dL (250-450); PERCENT IRON SATURATION 6.5 % (15.0-55.0); Phosphorus 3.1 mg/dL (2.5-4.9); Potassium 4.4 mmol/L (3.5-5.1); Sodium Level 134 mmol/L (136-145)
== END | disposition home or self-care (01) ==
LOC: POLAB3 11:44
PROVIDERS: PCP Family Medicine; Visit Provider Internal Medicine Nephrology
DX: D50.9 Iron deficiency anemia, unspecified (principal); N25.81 Secondary hyperparathyroidism of renal origin; N18.32 Chronic kidney disease, stage 3b; E83.52 Hypercalcemia
CPT/HCPCS: 36415; 80069; 82306; 82728; 83540; 83550; 83970; 85027

== ENCOUNTER 2022-01-06 19:23 | Emergency (ER) | payer MEDICARE, SELFPAY ==
[2022-01-06 19:23] VITALS: BP 126/62; PULSE 81; RESP 15; TEMP 36.1; O2SAT 100; BMI 24.7
--- NOTE | 2022-01-06 21:11 | EDS_ITS ---
HPI HPI - Fall History of Present Illness Chief Complaint: Fall Narrative Narrative: 81-year-old female presenting with a trip and fall. She states she did not fall very hard and was able to kind of catch herself. She sat down slowly. She states that initially she had tripped up after stubbing her toe. She does state that she came down slowly and hit her head on the cabinet. She did not sustain a laceration or abrasion. No LOC. Patient not dizzy, lightheaded, nauseous, vomiting. She denies visual complaints. She denies any neck pain. She has no pain in her extremities. She states that she is on Coumadin and her last INR check was Tuesday and she was 2.3. She states she presents today out of concern for the head injury on Coumadin. [facility] Medical History Hypertension ICD (implantable cardioverter-defibrillator) in place Irregular heart beat Non-smoker Seizures Home Medications pravastatin 40 mg tablet 20 mg PO DAILY 01/28/14 [History Last Taken 01/27/14] amiodarone 200 mg tablet 200 mg PO BID 11/19/19 [History Last Taken Unknown] metoprolol succinate 100 mg tablet,extended release 24 hr 150 mg PO DAILY 11/19/19 [History Last Taken Unknown] warfarin 2.5 mg tablet 2.5 mg PO SUMOWEFRSA 11/19/19 [History Last Taken Unknown] furosemide 20 mg tablet 60 mg PO DAILY #90 tabs 11/20/19 [Rx Last Taken Unknown] ceftriaxone 1 gram intravenous piggyback 1 g IV DAILY 01/06/22 [History Last Taken Unknown] losartan 25 mg tablet 25 mg PO DAILY 01/06/22 [History Last Taken Unknown] vancomycin 500 mg/100 mL in 0.9% sodium chloride intravenous piggyback 500 mg IV Q48H 01/06/22 [History Last Taken Unknown] warfarin 5 mg tablet 5 mg PO TUTH 01/06/22 [History Last Taken Unknown] Allergy/AdvReac Type Severity Reaction Status Date / Time phenytoin sodium Allergy Unknown Verified 01/06/22 19:26 [From Dilantin] phenytoin sodium extended Allergy Unknown Verified 01/06/22 19:26 [From Dilantin] Surgical History Mitral valve replaced Social History Smoking Status: Never smoker ROS ROS ED Constitutional Constitutional ED: Denies chills, fever(s) or sweats Eyes Eyes: Denies blurry vision or change in vision ENT ENT ED: Denies ear pain or sore throat Cardiovascular Cardiovascular: Denies chest pain, palpitations or racing heartbeat Respiratory/Chest Respiratory/Chest: Denies cough, dyspnea or sputum Gastrointestinal Gastrointestinal: Denies abdominal pain, constipation, diarrhea, nausea or vomiting Genitourinary Genitourinary ED: Denies dysuria, hematuria or urinary frequency Musculoskeletal Musculoskeletal: Denies arthralgias, myalgias or neck pain Integumentary Denies abscess, Abrasions or rash Neurologic Neurologic: Denies headache(s), paresthesias or weakness Psychiatric Psychiatric: Denies anxiety, depression, suicidal ideation or suicidal thoughts Endocrine Endocrinology: Denies polydipsia or polyuria EXAM Physical Exam Const Vital Signs: 01/06/22 19:23 01/06/22 19:34 01/06/22 22:55 Temperature 97.0 F L Temperature Source Temporal Pulse Rate 81 68 Respiratory Rate 15 17 Respiratory Effort Normal Non-Labored Respiratory Depth Normal Respiratory Pattern Normal Blood Pressure 126/62 H 113/74 Blood Pressure Mean 83 Pulse Ox 100 99 Oxygen Delivery Method Room Air Room Air Positive well nourished General Appearance ED: NAD HEENT Reports normocephalic atraumatic Eyes PERRL and EOMs intact bilaterally Neck full ROM General: Negative for tenderness Chest Wall inspection of chest normal Resp normal respiratory effort Cardio regular rate and regular rhythm Back/Spine Cervical Spine: Negative for cervical spine tenderness Thoracic Spine / Upper Back: Negative for thoracic spinal tenderness Lumbar Spine / Lower Back: Negative for lumbar spinal tenderness Neuro oriented x3, CN's II-XII intact bilaterally, moves all extremities, no focal motor deficits and no sensory deficits noted Sensorium / Orientation: alert Motor Exam: strength 5/5 throughout Psych mental status grossly normal Mood & Affect: Negative for depressed or anxious Skin Lesions: no lesions Rashes: no rashes Trauma: Negative for abrasion MDM MDM MDM Narrative Medical decision making narrative: Patient presenting after a fall when she slightly grazed her head. She has no signs or symptoms. She has no neurologic deficits or lateralizing signs or symptoms. She states she purely came because she is on Coumadin. I did obtain a CT of the brain and the radiologist did call me and stated he saw something that was an incidental possibly due to recent injury and wanted to discuss her symptoms. I stated that she did not have any symptoms that would explain this. Has not had any signs or symptoms of stroke. I think she is stable for discharge home. Patient was amenable to this. Discharged stable condition. Impression: 1. Closed head injury Lab Data Attestation: I reviewed the patient's lab results. Radiography Diagnostic Testing: Clinical Impression(s) from Imaging Studies Brain CT 01/06/22 21:11 IMPRESSION: Atrophy and moderate periventricular white matter ischemic changes. No evidence for acute bleed. Nonspecific hypoattenuation in the left lateral temporal lobe possibly due to recent injury or incidental focal ischemic event. MRI would be helpful for more definitive evaluation. Electronically Signed: Dannie Willis MD at 22:19 EDT , Discharge Plan Triage Chief Complaint: Fall ED Provider: Fan Johnston Dx/Rx/DC Orders Instructions: ED Head Injury (Adult), ED Fall Prevention Prescriptions: No Action pravastatin 40 MG tablet 20 mg PO DAILY Label Comments: cholesterol amiodarone 200 MG tablet 200 mg PO BID metoprolol succinate 100 MG tablet extended release 24 hr 150 mg PO DAILY warfarin 2.5 MG tablet 2.5 mg PO SUMOWEFRSA furosemide 20 MG tablet 60 mg PO DAILY Qty: 90 0RF losartan 25 mg tablet 25 mg PO DAILY warfarin 5 mg Tablet 5 mg PO TUTH ceftriaxone 1 gram Piggyback 1 g IV DAILY vancomycin in 0.9 % sodium chl 500 mg/100 mL Piggyback 500 mg IV Q48H Primary Care Provider: Peng Granados Referrals: Peng Granados MD [Primary Care Provider] - Disposition Disposition: Home, Self Care Discharge Date/Time: 01/06/22 22:55
--- NOTE | 2022-01-06 21:11 | CT_ITS ---
We are attempting to reach an attending provider to discuss findings. An addendum with communication details will be sent when the communication is complete. STUDY: CT BRAIN WITHOUT CONTRAST REASON FOR EXAM: Female, 81 years old. head injury RADIATION DOSAGE (If Supplied By Facility): CTDIvol = ( 44.99 ) mGy, DLP = ( 849.54 ) mGycm TECHNIQUE: Transaxial CT imaging of the brain was performed without administration of intravenous contrast material. Individualized dose optimization techniques were used for this CT. COMPARISON: No relevant priors. FINDINGS: Normal soft tissue structures. Normal calvarium. Mild calcific plaquing of the cavernous carotids. Moderate atrophy and periventricular white matter ischemic changes. There is focal hypoattenuation in the left lateral temporal lobe with mild effacement of the cortical sulci. This could represent posttraumatic edema or incidental ischemic event. Normal basal ganglia and thalami. Normal brainstem. Normal cerebellum. Focal dural calcification of the left temporal bone possibly osteoma or densely calcified meningioma Partial empty sella deformity likely of no significance. There is no intracranial hemorrhage. There are no findings of an acute ischemic infarction. Nonspecific cortical calcification in the right orbit Normal visualized paranasal sinuses. CT/Brain/Head without Contrast IMPRESSION: Atrophy and moderate periventricular white matter ischemic changes. No evidence for acute bleed. Nonspecific hypoattenuation in the left lateral temporal lobe possibly due to recent injury or incidental focal ischemic event. MRI would be helpful for more definitive evaluation. Electronically Signed: Dannie Willis MD at 22:19 EDT ,
[2022-01-06 22:55] VITALS: BP 113/74; PULSE 68; RESP 17; O2SAT 99
== END 2022-01-06 22:55 | disposition home or self-care (01) ==
PROVIDERS: Emergency Provider Student in an Organized Health Care Education/Training Program; PCP Family Medicine; Visit Provider Student in an Organized Health Care Education/Training Program
DX: S09.90XA Unspecified injury of head, initial encounter (principal); I10 Essential (primary) hypertension; W01.0XXA Fall on same level from slipping, tripping and stumbling without subsequent striking against object, initial encounter
CPT/HCPCS: 70450; 99282